=== PATIENT | female | born 1975 | race Caucasian/White ===

== ENCOUNTER 2016-10-03 11:57 | Emergency (ER) | payer MEDICAID, OTHER ==
[~2016-10-03] VITALS: Ht 167.6 cm; Wt 48.5 kg
--- OUTSIDE RECORDS SUMMARY | 2016-10-03 12:05 | XMS REPORT | CCD ---
Author Author GOLDIE GRAHAM Organization Unknown Address [address] [place], [place] [id number] Care Team Providers Care Unloading Checker Name Role Phone SANCHEZ, DO Attphys LAURA DO Prisurg Vital Signs Unknown or Not Available. Allergies Allergy Code Allergy Type Reaction Status PCN (penicillin) 0 Drug allergy Active LORTAB 628496 Drug allergy Active Procedures Procedure Code Procedure Type Date LOCM 300-349 MG/ML, PER ML [id number] [facility] CT 11/03/2014 CT ABD AND PELVIS W/WO CONTRAST [id number] [facility] CT 2014 ABDOMEN 2 VIEW DECUB/UPRIGHT [id number] [facility] 2014 ^CBC W/AUTO DIFF 5758796 [facility] CT 11/03/2014 RAPID DRUG SCREEN [id number] [facility] 11/03/2014 C REACTIVE PROTEIN [id number] [facility] 11/03/2014 URINALYSIS C&S IF IND [id number] [facility] CT 11/03/2014 LIPASE [id number] [facility] 11/03/2014 COMPREHENSIVE METABOLIC PANEL [id number] [facility] 2014 CBC W/ AUTO DIFF (RFLX MAN DIFF IF IND) [id number] [facility] CT 11/03/2014 History of Immunizations Unknown or Not Available. Problems Unknown or Not Available. Results COMPREHENSIVE METABOLIC PANEL - Collect Date/Time: 11/03/2014 03:20 Test Name Code Test Result Test Units Test Ref Range GLUCOSE 2345-7 95 MG/DL L=70 H=100 SODIUM 2951-2 141 MEQ/L L=135 H=148 POTASSIUM 2823-3 4.0 MEQ/L L=3.5 H=5.3 CHLORIDE 2075-0 109 MEQ/L L=96 H=110 CO2 2028-9 22 MEQ/L L=22 H=29 BUN 3094-0 10 MG/DL L=8 H=22 CREATININE 2160-0 0.8 MG/DL L=0.6 H=1.6 SGOT/AST 1920-8 15 IU/L L=10 H=40 SGPT/ALT 1742-6 12 IU/L L=8 H=54 ALK PHOS 6768-6 55 IU/L L=35 H=115 TOTAL PROTEIN 2885-2 6.3 G/DL L=5.5 H=8.5 ALBUMIN 1751-7 4.0 G/DL L=3.1 H=5.4 TOTAL BILI 1975-2 0.4 MG/DL L=0.0 H=1.5 CALCIUM 05996-0 9.0 MG/DL L=8.2 H=10.6 AGE 38 yrs GFR NonAA 81 GFR AA 98 eGFR >60 N/A eGFR AA* >60 N/A LIPASE - Collect Date/Time: 11/03/2014 03:20 Test Name Code Test Result Test Units Test Ref Range LIPASE 3040-3 17 U/L L=8 H=78 RAPID DRUG SCREEN - Collect Date/Time: 11/03/2014 03:35 Test Name Code Test Result Test Units Test Ref Range Cannabinoids (THC) NEGATIVE N/A NEG: < 50 ng/ ml Phencyclidine (PCP) NEGATIVE N/A NEG: < 25 ng/ ml Cocaine NEGATIVE N/A NEG: < 300 ng/ml Methamphetamine NEGATIVE N/A NEG: < 1000 ng/ml Opiates NEGATIVE N/A NEG: < 300 ng/ml Amphetamine NEGATIVE N/A NEG: < 1000 ng/ml Benzodiazepines NEGATIVE N/A NEG: < 300 ng/ml Tricyclic Antidepres NEGATIVE N/A NEG: < 300 ng/ ml Methadone NEGATIVE N/A NEG: < 300 ng/ml Barbiturates NEGATIVE N/A NEG: < 200 ng/ml Oxycodone NEGATIVE N/A NEG: < 100 ng/ml Propoxyphene (PPX) NEGATIVE N/A NEG: < 300 ng/ ml CBC W/ AUTO DIFF (RFLX MAN DIFF IF IND) - Collect Date/Time: 11/03/2014 03:20 Test Name Code Test Result Test Units Test Ref Range WBC 07697-2 7.5 TH/CMM L=4.5 H=10.8 RBC 789-8 4.12 ML/CMM L=4.20 H=5.40 HGB 718-7 13.4 G/DL L=12.0 H=16.0 HCT 4544-3 41.5 % L=37.0 H=47.0 MCV 101 FL L=81 H=99 MCH 32.5 PG L=27.0 H=33.0 MCHC 32.3 G/DL L=31.0 H=36.0 RDW SD 47 FL L=36 H=50 RDW CV 12.9 % L=0.0 H=14.8 MPV 10.6 FL L=9.3 H=12.5 PLT 777-3 160 TH/CMM L=130 H=440 NRBC# 0.00 TH/CMM L=0.00 H=0.00 NRBC% 0.0 /100WBC L=0.0 H=2.0 %NEUT 66.4 % %LYMP 16.1 % %MONO 11.5 % %EOS 5.2 % %BASO 0.8 % #NEUT 4.99 TH/CMM L=2.10 H=8.20 #LYMP 1.21 TH/CMM L=0.90 H=5.20 #MONO 0.86 TH/CMM L=0.16 H=1.00 #EOS 0.39 TH/CMM L=0.00 H=0.80 #BASO 0.06 TH/CMM L=0.00 H=0.20 MANUAL DIFF NOT IND N/A URINALYSIS C&S IF IND - Collect Date/Time: 11/03/2014 03:35 Test Name Code Test Result Test Units Test Ref Range COLOR YELLOW N/A NL: YELLOW APPEARANCE CLEAR N/A NL: CLEAR SPEC GRAV >=1.030 N/A NL: 1.002 - 1.022 pH 5.0 N/A NL: 5 - 9 PROTEIN NEGATIVE N/A NL: NEGATIVE mg/dl GLUCOSE NEGATIVE N/A NL: NEGATIVE mg/dl KETONE NEGATIVE N/A NL: NEGATIVE mg/dl BILIRUBIN NEGATIVE N/A NL: NEGATIVE BLOOD TRACE-INTACT N/A NL: NEGATIVE NITRITE NEGATIVE N/A NL: NEGATIVE LEUK SCREEN NEGATIVE N/A NL: NEGATIVE WBC/HPF RARE N/A NL: NEGATIVE RBC/HPF NEGATIVE N/A NL: NEGATIVE CASTS/LPF NEGATIVE N/A NL: NEGATIVE CRYSTALS NEGATIVE N/A NL: NEGATIVE MUCOUS THRDS 3+++ N/A NL: NEGATIVE BACTERIA FEW N/A NL: NEGATIVE EPITH CELLS 2++ SQUAMOUS N/A NL: NEGATIVE TRICHOMONAS NEGATIVE N/A NL: NEGATIVE YEAST NEGATIVE N/A NL: NEGATIVE CULT SET UP? NO N/A C REACTIVE PROTEIN - Collect Date/Time: 11/03/2014 03:20 Test Name Code Test Result Test Units Test Ref Range C REACTIVE PROTEIN 1988-5 <0.5 MG/DL L=0.0 H= 1.0 Active Medications Unknown or Not Available. Medications Administered During Visit Unknown or Not Available. Encounters Encounter Diagnosis Diagnosis Code Start Date OVARIAN CYST NEC NOS 6202 11/03/2014 Social History Smoking Status Code Start Date End Date Current every day smoker [id number] Patient Decision Aids Unknown or Not Available. Discharge Instructions You were admitted to [facility] on 11/03/2014 with a principal diagnosis of OVARIAN CYST NEC NOS. You were discharged from [facility] on 11/03/2014. Should you have any questions prior to discharge, please contact a member of your healthcare team. If you have left the hospital and have any questions, please contact your primary care physician. Chief Complaint and Reason For Visit Chief Complaint Date of Onset LOWER ABDOMINAL PAIN Function Status Unknown or Not Available. Referral/Transition of Care Unknown or Not Available.
[2016-10-03] MEDS ORDERED: KETOROLAC 30 MG/ML VIAL IVP ONE (12:15)
[2016-10-03] MEDS ORDERED: LORazepam INJ 2 MG/ML (ATIVAN) VIAL IVP ONE (12:15)
--- NOTE | 2016-10-03 12:21 | ED Upper Extremity ---
General Chief Complaint: General Problems/Pain Stated Complaint: RIGHT ARM PAIN Nursing Triage Note: PT TO ED 8 PER W/C FOR C/O RT ARM PAIN ONSET AFTER RECEIVING AN EPIDURAL INJECTION IN HER CERVICAL SPINE FOR HERNIATED DISC TO NECK Nursing Sepsis Screen: No Definite Risk Source: patient Exam Limitations: no limitations History of Present Illness Time seen by provider: 12:20 Initial Comments To ER screaming in pain from pain in the right arm that began after receiving a c5-c6 cervical epidural steroid injection by a pain management physician Dr Cisneros at Dr. Johnson's office just prior to arrival. This would be her second cervical epidural injection and she had no complications after the first and felt much better. She states that she had pain immediately upon insertion of the needle it became significantly worse. Pain fracture the dorsal aspect of the right arm right Merlis the middle ring and little finger. She screams in pain with even light touch of these fingers. She is able to move the wrist in all directions, flex and extend the elbow but states she cannot make a fist because of the increased pain. Her initial symptoms that prompted cervical epidural injections for the bulging disks was pain to the right side of her head. She has had minimal pain to the right arm up to this point. Onset: just prior to arrival Severity: severe Pain/Injury Location: right arm Method of Injury: unknown Allergies and Home Medications Allergies Coded Allergies: Penicillins (Verified Allergy, Unknown, 10/03/16) Sulfa (Sulfonamide Antibiotics) (Verified Allergy, Unknown, 10/03/16) acetaminophen (Verified Allergy, Unknown, 10/03/16) hydrocodone (Verified Allergy, Unknown, 10/03/16) Home Medications Oxycodone HCl/Acetaminophen 1 Each Tablet #30 1 EACH PO Q4H PRN PRN PAIN Prescribed by: JORDNE RODAS on 10/03/16 6747 Constitutional: see HPI EENTM: see HPI Respiratory: no symptoms reported Cardiovascular: no symptoms reported Genitourinary: no symptoms reported Musculoskeletal: see HPI Skin: no symptoms reported Psychiatric/Neurological: No Symptoms Reported Past Bgpebel-Oxuuhp-Gwifze Hx Patient Social History Alcohol Use: Denies Use Recreational Drug Use: No Smoking Status: Never a Smoker Recent Foreign Travel: No Contact w/Someone Who Travel: No Recent Infectious Disease Expo: No Recent Hopitalizations: No Surgeries HX Surgeries: Yes (ULNAR NERVE INJURY LT ARM) Surgeries: Adenoidectomy, Tonsillectomy, Tubal Ligation Respiratory Hx Respiratory Disorders: No Cardiovascular Hx Cardiac Disorders: No Neurological Hx Neurological Disorders: No Genitourinary Hx Genitourinary Disorders: No Gastrointestinal Hx Gastrointestinal Disorders: No Musculoskeletal Hx Musculoskeletal Disorders: Yes (HERNIATED DISC X2 IN NECK) Endocrine Hx Endocrine Disorders: No HEENT HX ENT Disorders: No Cancer Hx Cancer: No Psychosocial Hx Psychiatric Problems: No Integumentary HX Skin/Integumentary Disorder: No Blood Transfusions Hx Blood Disorders: No Physical Exam Vital Signs Vital Sign - Last 12Hours 10/03/16 12:04 Temp 97.1 Pulse 86 Resp 24 B/P 124/83 Pulse Ox 95 O2 Delivery Room Air Capillary Refill : Less Than 3 Seconds General Appearance: WD/WN no apparent distress HEENT: PERRL/EOMI normal ENT inspection TMs normal Neck: non-tender full range of motion Respiratory: lungs clear no respiratory distress no accessory muscle use Gastrointestinal: normal bowel sounds non tender soft Shoulder: normal inspection non-tender Elbow/Forearm: normal inspection, non-tender Wrist: Yes normal inspection, Yes non-tender Hand: normal inspection, non-tender Neurologic/Tendon: responds to pain Neurologic/Psychiatric: alert normal mood/affect oriented x 3 Skin: normal color warm/dry Comments There is no loss of motor function. There is a pain pattern more consistent with a C7 nerve root than C5/C6 as she reports hyperesthesia in the thumb, pointer and ring finger of the right hand and down the forearm. Progress/Results/Core Measures Results/Orders My Orders Orders-JORDEN RODAS APRN Saline Lock/Iv-Start (10/03/16 12:14) Lorazepam Injection (Ativan Injection) (10/03/16 12:15) Ketorolac Injection (Toradol Injection) (10/03/16 12:15) Mri Cervical Spine W/O Contras (10/03/16 12:17) Ketamine Injection (Ketalar Injection) (10/03/16 13:00) Ns (Ivpb) (Sodium Chloride 0.9%) (10/03/16 13:00) Fentanyl Injection (Sublimaze Injection (10/03/16 13:45) Hydromorphone Injection (Dilaudid Inject (10/03/16 14:00) Medications Given in ED Current Medications Medications Dose Ordered Sig/Dameon Route Start Time Stop Time Status Last Admin Dose Admin Hydromorphone HCl 1 mg ONCE PRN IVP 10/03/16 14:00 10/03/16 13:57 1 MG Ketamine HCl 15 mg 15 mg ONCE ONCE IV 10/03/16 13:00 10/03/16 13:01 DC 10/03/16 13:04 15 MG Ketorolac Tromethamine 30 mg ONCE ONCE IVP 10/03/16 12:15 10/03/16 12:16 DC 10/03/16 12:27 30 MG Lorazepam 1 mg ONCE ONCE IVP 10/03/16 12:15 10/03/16 12:16 DC 10/03/16 12:27 1 MG Sodium Chloride 250 ml @ 999 mls/hr Q16M ONCE IV 10/03/16 13:00 10/03/16 13:15 DC 10/03/16 13:04 999 MLS/HR Vital Signs/I&O Vital Sign - Last 12Hours 10/03/16 12:04 Temp 97.1 Pulse 86 Resp 24 B/P 124/83 Pulse Ox 95 O2 Delivery Room Air Blood Pressure Mean: 97 Progress Note : Progress Note Patient was referred to Dr. Cisneros and Dr. Johnson's clinic for epidural injections by her contracts attorney Payal Anna. She was seeing an contracts attorney after developing neck pain while at work in July 2015 and believes this to be work related injury. She was subsequently fired from her job. She then had carpal tunnel surgery of the right hand since then. Diagnostic Imaging Diagonstic Imaging: MRI Comments NAME: GOLDENPENNYNeptali Avelar MED REC#: [id number] PT STATUS: REG ER : 1975 PHYSICIAN: JORDEN RODAS MULTI SHARE PROGRAM COORDINATOR ADMIT DATE: 10/03/16/ER Draft Date of Exam:10/03/16 MRI CERVICAL SPINE W/O CONTRAS PROCEDURE: MR imaging cervical spine without contrast. TECHNIQUE: Multiplanar, multisequence MR imaging of the cervical spine was performed without contrast. INDICATION: Neck pain. Pain radiating into the left arm area, started within minutes after an epidural injection FINDINGS: There is reversal of the lordotic curvature. The alignment of the posterior spinal line is satisfactory. The vertebral body heights are preserved. There is mild disc desiccation at the upper and mid cervical spine levels. There is no significant marrow signal abnormality. The spinal cord has normal caliber and contour. There is a relatively short AP dimension of the spinal canal in the mid to lower cervical canal in this patient. There is a very small amount of fluid signal seen in the posterior epidural space at C4/5 and C5/6 levels with no associated mass-effect on the spinal canal or the spinal cord. This could be related to the recent injection. There is no epidural hematoma. The foramen magnum and the upper cervical canal are widely patent. C2/L3: No disc herniation, no spinal canal or foramina stenosis. C3/4: No disc herniation, no spinal canal or foramina stenosis. C4/5: There is a minimal spur disc complex on top of a congenital relatively short AP dimension of the spinal canal resulting in mild spinal canal stenosis reducing the AP dimension of the central canal to 9.2 mm. The foramina appear patent. C5/6: There is a mild spur disc complex asymmetric to the left side associated with mild to moderate spinal canal stenosis reducing the AP dimension of the canal to 8.6 mm with no spinal cord compression. There is hypertrophy of the left uncovertebral joint resulting in mild foraminal stenosis on the left side. No significant foraminal stenosis on the right. C6-7: There is a prominent disc spur complex and posterior ligamentous hypertrophy resulting in moderate to severe spinal canal stenosis with mild cord compression. No cord signal abnormality. The central canal AP diameter is reduced to 6.9 mm. This is slightly worse in the right paramedian plane. The foramina demonstrate moderate to severe stenosis on the left and mild stenosis on the right side. C7/T1: There is no disc herniation, no spinal canal or foramina stenosis. The paraspinous soft tissues demonstrate no significant fluid collection or hematoma. IMPRESSION: 1. There is minimal fluid intensity in the posterior epidural space, could relate to the recent spine injection with no mass-effect on the thecal sac or spinal cord. No epidural hematoma is seen. 2. 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 This results in moderate to severe spinal canal stenosis with mild cord compression at this level. The findings were discussed with the Jorden Rodas, the physician's resident assistant taking care of the patient in the ER by Dr. Bunn at time of dictation. Dictated on workstation # [id number] Dict: 10/03/16 1346 Trans: 10/03/16 1416 [facility] [id number] Interpreted by: GUILLERMO BUNN MD Electronically signed by: Departure Communication Progress Notes Dr. Jd hayes by the emergency room. Informs that he was midline cervical spine C5/C6 intervertebral space with fluoroscopic guidance and contrast used as well. 1300-patient was unable tolerate the MRI as she continued to scream and flail. She was brought back to the emergency room for a low-dose ketamine infusion for pain of 15 mg over 15 minutes diluted in 250 mL normal saline. We will reattempt MRI 1414-discussed the MRI with Dr. Bunn. There is an epidural focus of fluid at C4-C5 and C5-C6 with no mass effect. This is likely secondary to the injection that she just received a few hours ago. There is canal stenosis at C6-C7 secondary to disc and ligamentous hypertrophy with no large hematoma. No concerning findings other than this on MRI. I called Dr. Cisneros who recommends pain control until she follows up with him on 10/17/16. I also discussed with spine surgeon Dr. Rodney who agrees that we have adequately ruled out emergent complications and sometimes this does exacerbate acute pain and a very small percentage of patients. He recommends pain control and discharge. Impression Impression: Primary Impression: C7 radiculopathy Disposition: 01 HOME, SELF-CARE Condition: Stable Departure-Patient Inst. Decision time for Depature: 14:16 Referrals: NO,LOCAL PHYSICIAN (PCP/Family) Primary Care Physician Patient Instructions: Radiculopathy Add. Discharge Instructions: 1. Your scheduled to follow-up with Dr. Cisneros on thyroid 16. Take the Percocet as directed until then 2. Return to ER for any concerns All discharge instructions reviewed with patient and/or family. Voiced understanding. Scripts Oxycodone HCl/Acetaminophen (Percocet 5-325 mg Tablet)1 Each Tablet1 Each PO Q4H PRN PAIN #30 TAB Prov:JORDEN RODAS APRN 10/03/16 JORDEN RODAS APRN Oct 03, 2016 12:21
[2016-10-03] MEDS ORDERED: KETAMINE HCL 100 MG/ML 5 ML VIAL IV ONE (13:00)
[2016-10-03] MEDS ORDERED: NS (IVPB) 250 ML IV ONE (13:00)
[2016-10-03] MEDS ORDERED: fentaNYL INJECTION 100 MCG/2 ML AMP IVP ONE (13:45)
[2016-10-03] MEDS ORDERED: HYDROmorphone (DILAUDID) 2 MG/ML VIAL IVP PRN (14:00)
--- NOTE | 2016-10-03 14:16 | Diagnostic Imaging Report ---
PROCEDURE: MR imaging cervical spine without contrast. TECHNIQUE: Multiplanar, multisequence MR imaging of the cervical spine was performed without contrast. INDICATION: Neck pain. Pain radiating into the left arm area, started within minutes after an epidural injection FINDINGS: There is reversal of the lordotic curvature. The alignment of the posterior spinal line is satisfactory. The vertebral body heights are preserved. There is mild disc desiccation at the upper and mid cervical spine levels. There is no significant marrow signal abnormality. The spinal cord has normal caliber and contour. There is a relatively short AP dimension of the spinal canal in the mid to lower cervical canal in this patient. There is a very small amount of fluid signal seen in the posterior epidural space at C4/5 and C5/6 levels with no associated mass-effect on the spinal canal or the spinal cord. This could be related to the recent injection. There is no epidural hematoma. The foramen magnum and the upper cervical canal are widely patent. C2/L3: No disc herniation, no spinal canal or foramina stenosis. C3/4: No disc herniation, no spinal canal or foramina stenosis. C4/5: There is a minimal spur disc complex on top of a congenital relatively short AP dimension of the spinal canal resulting in mild spinal canal stenosis reducing the AP dimension of the central canal to 9.2 mm. The foramina appear patent. C5/6: There is a mild spur disc complex asymmetric to the left side associated with mild to moderate spinal canal stenosis reducing the AP dimension of the canal to 8.6 mm with no spinal cord compression. There is hypertrophy of the left uncovertebral joint resulting in mild foraminal stenosis on the left side. No significant foraminal stenosis on the right. C6-7: There is a prominent disc spur complex and posterior ligamentous hypertrophy resulting in moderate to severe spinal canal stenosis with mild cord compression. No cord signal abnormality. The central canal AP diameter is reduced to 6.9 mm. This is slightly worse in the right paramedian plane. The foramina demonstrate moderate to severe stenosis on the left and mild stenosis on the right side. C7/T1: There is no disc herniation, no spinal canal or foramina stenosis. The paraspinous soft tissues demonstrate no significant fluid collection or hematoma. IMPRESSION: 1. There is minimal fluid intensity in the posterior epidural space, could relate to the recent spine injection with no mass-effect on the thecal sac or spinal cord. No epidural hematoma is seen. 2. 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 This results in moderate to severe spinal canal stenosis with mild cord compression at this level. The findings were discussed with the Juan Jose Rodas, the physician's photography assistant taking care of the patient in the ER by Dr. Bunn at time of dictation. Dictated by: Dictated on workstation # [id number]
[2016-10-03] MEDS ORDERED: OXYC-197 PO (14:17)
[2016-10-03 14:31] VITALS: BP 117/73
== END 2016-10-03 14:31 | disposition home or self-care (01) ==
LOC: ER 12:01
DX: M47.22 Other spondylosis with radiculopathy, cervical region (principal); M48.02 Spinal stenosis, cervical region; G89.29 Other chronic pain
CPT/HCPCS: 72141; 96374; 96375